=== PATIENT | female | born 1980 | race Hispanic/Latino ===

== ENCOUNTER 2018-02-20 16:24 | Emergency (ER) | payer OTHER ==
[2018-02-20 17:11] LABS: Absolute Lymphocytes (CBC) 2.4 K/uL (0.7-4.9); Absolute Monocytes 0.3 K/uL (0.1-1.3); Absolute Neutrophil 2.7 K/uL (1.8-8.0); Basophils % 0.8 % (0-1.3); Eosinophils % 0.7 % (0-4.4); Hematocrit 40.4 % (36.0-45.0); Lymphocytes % 44.5 % (15.3-44.8); MCH 31.4 pg (27.0-35.0); MCV 93.2 fL (80-100); MPV 8.2 fL (7.6-11.3); Monocytes % 5.4 % (3.3-12.3); RBC Red Blood Cell Count 4.33 M/uL (3.86-4.86)
[2018-02-20] MEDS ORDERED: NA CHLORIDE 0.9% 1,000 ML ONE (17:12)
[2018-02-20 17:27] LABS: ALT/SGPT 23 U/L (12-78); AST/SGOT 22 U/L (15-37); Albumin 3.5 g/dL (3.4-5.0); Alkaline Phosphatase 71 U/L (45-117); BUN Blood Urea Nitrogen 13 mg/dL (7-18); Bicarbonate 25 mmol/L (21-32); Bilirubin Direct < 0.1 mg/dL (0-0.2); Bilirubin Total 0.2 mg/dL (0.2-1.0); Glucose Level 92 mg/dL (74-106); Lipase 122 U/L (73-393); Potassium 3.7 mmol/L (3.5-5.1); Protein, Total 7.9 g/dL (6.4-8.2); Sodium Level 140 mmol/L (136-145)
[2018-02-20] MEDS ORDERED: ONDANSETRON 4 MG/2 ML VIAL ONE (17:33)
[2018-02-20 18:07] LABS: Urine Blood 3+ (NEG); Urine Glucose NEGATIVE (NEG); Urine Protein 1+ (NEG)
[2018-02-20 18:34] LABS: Urine Bacteria <20 /HPF (<20); Urine Culture Reflex Order NOT NEEDED; Urine RBC >50 /HPF (NONE SEEN)
--- NOTE | 2018-02-20 19:02 | RAD REPORT ---
EXAM DESCRIPTION: CT - Abdomen Pelvis W Contrast - 02/20/2018 6:51 pm CLINICAL HISTORY: Persistent right lower quadrant pain, history of hernia repair COMPARISON: None. TECHNIQUE: Biphasic, helical CT imaging of the abdomen and pelvis was performed following 100 ml non -ionic IV contrast. Oral contrast was given. All CT scans are performed using dose optimization technique as appropriate and may include automated exposure control or mA/KV adjustment according to patient size. FINDINGS: No suspicious findings in the lung bases. The liver, spleen, and pancreas show no suspicious findings. Gallbladder and biliary tree are also wi thout suspicious finding. Gallstones can be occult on CT imaging. Symmetric renal function is seen with no hydronephrosis or suspicious renal mass. No pyelonephritis o r acute renal parenchymal process. No adrenal abnormality. Urinary bladder shows no suspicious findin gs. Uterus and ovaries are unremarkable. No dilated bowel loops or bowel wall thickening. Appendicitis is not clearly defined. There are direc t or indirect findings for appendicitis. No free air, free fluid or inflammatory stranding. No herni a, mass or bulky lymphadenopathy. No suspicious bony findings. IMPRESSION: Contrast enhanced CT abdomen and pelvis showing no significant or suspicious finding.
--- NOTE | 2018-02-20 19:21 | EDPHYS ---
Physician Documentation [facility] Name: Nadiya Koroma Age: 37 yrs Sex: Female : 1980 Arrival Date: 02/20/2018 Time: 16:27 Bed 25 Private MD: ED Physician German Roe HPI: 02/20 17:05 This 37 yrs old Female presents to ER via Ambulatory with complaints of pm1 Abdominal Pain. 17:05 The patient presents with abdominal pain. Onset: The symptoms/episode began/occurred 4 pm1 day(s) ago. The symptoms do not radiate. Associated signs and symptoms: Pertinent negatives: nausea, vomiting, and diarrhea, chest pain, shortness of breath. The symptoms are described as sharp. Modifying factors: The symptoms are alleviated by nothing, the symptoms are aggravated by walking, Movement of right leg. Severity of pain: in the emergency department the pain is unchanged. The patient has been recently seen by a physician: Dr. Weaver evaluated the patient today for right lower quadrant groin pain. Patient had a transvaginal U/S performed prior to ER arrival. 17:05 Patient was sent her by Dr. Kruse for r/o appendicitis and kidney stones. 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 - Social history:: Smoking status: Patient/guardian denies using tobacco. - Ebola Screening: : No symptoms or risks identified at this time. ROS: 17:05 Constitutional: Negative for fever, chills, and weight loss, Eyes: Negative for injury, pm1 pain, redness, and discharge, ENT: Negative for injury, pain, and discharge, Neck: Negative for injury, pain, and swelling, Cardiovascular: Negative for chest pain, palpitations, and edema, Respiratory: Negative for shortness of breath, cough, wheezing, and pleuritic chest pain. 17:05 Back: Negative for injury and pain, : Negative for injury, bleeding, discharge, and swelling, MS/Extremity: Negative for injury and deformity, Skin: Negative for injury, rash, and discoloration, Neuro: Negative for headache, weakness, numbness, tingling, and seizure. 17:05 Abdomen/GI: Positive for abdominal pain, of the right lower quadrant, Right groin, Negative for nausea, vomiting, and diarrhea. Exam: 17:05 Constitutional: This is a well developed, well nourished patient who is awake, alert, pm1 and in no acute distress. Head/Face: Normocephalic, atraumatic. Eyes: Pupils equal round and reactive to light, extra-ocular motions intact. Lids and lashes normal. Conjunctiva and sclera are non-icteric and not injected. Cornea within normal limits. Periorbital areas with no swelling, redness, or edema. ENT: Nares patent. No nasal discharge, no septal abnormalities noted. Tympanic membranes are normal and external auditory canals are clear. Oropharynx with no redness, swelling, or masses, exudates, or evidence of obstruction, uvula midline. Mucous membranes moist. Neck: Trachea midline, no thyromegaly or masses palpated, and no cervical lymphadenopathy. Supple, full range of motion without nuchal rigidity, or vertebral point tenderness. No Meningismus. Chest/axilla: Normal chest wall appearance and motion. Nontender with no deformity. No lesions are appreciated. Cardiovascular: Regular rate and rhythm with a normal S1 and S2. No gallops, murmurs, or rubs. Normal PMI, no JVD. No pulse deficits. Respiratory: Lungs have equal breath sounds bilaterally, clear to auscultation and percussion. No rales, rhonchi or wheezes noted. No increased work of breathing, no retractions or nasal flaring. 17:05 Back: No spinal tenderness. No costovertebral tenderness. Full range of motion. Skin: Warm, dry with normal turgor. Normal color with no rashes, no lesions, and no evidence of cellulitis. 17:05 Abdomen/GI: Inspection: abdomen appears normal, Bowel sounds: normal, Palpation: soft, mild abdominal tenderness, in the right groin area, mass, is not appreciated, rebound tenderness, is not appreciated. 17:05 Musculoskeletal/extremity: Extremities: grossly normal except: ROM: no acute changes, intact in all extremities. Vital Signs: 16:37 BP 120 / 81; Pulse 79; Resp 18 S; Temp 98.0(TE); Pulse Ox 98% on R/A; Weight 49.9 kg aa5 (R); Height 4 ft. 10 in. (147.32 cm) (R); Pain 8/10; 17:51 BP 122 / 83; Pulse 73; Resp 18; Pulse Ox 100% on R/A; Pain 2/10; mg2 19:30 BP 122 / 80; Pulse 85; Resp 18; Pulse Ox 100% on R/A; Pain 1/10; mg2 16:37 Body Mass Index 22.99 (49.90 kg, 147.32 cm) aa5 MDM: 16:46 Patient medically screened. pm1 16:46 Data reviewed: vital signs. Data interpreted: Pulse oximetry: on room air is 98 %. pm1 Interpretation: normal. ED course: Patient refused pain medications offered in the ER. 17:05 ED course: Transvaginal ultrasound performed today reviewed: Endovaginal pelvic pm1 ultrasound shows no significant or suspicious findings. 19:19 Physician consultation: John Avalos MD was called at 19:20, was contacted at 19:20, pm1 regarding CT read - No appendicitis present. 19:20 Counseling: I had a detailed discussion with the patient and/or guardian regarding: the pm1 historical points, exam findings, and any diagnostic results supporting the discharge/admit diagnosis, lab results, radiology results, the need for outpatient follow up, to return to the emergency department if symptoms worsen or persist or if there are any questions or concerns that arise at home. 02/20 16:36 Order name: Basic Metabolic Panel [facility] 02/20 16:36 Order name: CBC with Diff; Complete Time: 17:34 snw 02/20 16:36 Order name: Hepatic Function; Complete Time: 17:34 w 02/20 16:36 Order name: Lipase; Complete Time: 17:34 snw 02/20 16:36 Order name: Urine Microscopic Only; Complete Time: 18:49 snw 02/20 16:37 Order name: Basic Metabolic Panel; Complete Time: 17:34 EDMS 02/20 16:36 Order name: Urine Test (obtain specimen); Complete Time: 17:16 snw 02/20 16:36 Order name: IV Saline Lock; Complete Time: 16:57 snw 02/20 16:36 Order name: Labs collected and sent; Complete Time: 16:57 [facility] 02/20 16:36 Order name: CT Abd/Pelvis - W/Contrast snw 02/20 17:16 Order name: Urine Dipstick--Ancillary (enter results); Complete Time: 18:19 eb 02/20 17:16 Order name: Urine --Ancillary (enter results); Complete Time: 18:19 eb 02/20 16:36 Order name: Urine Dipstick-Ancillary (obtain specimen); Complete Time: 17:16 snw Administered Medications: 17:11 Drug: NS 0.9% 1000 ml Route: IV; Rate: 1000 ml; Site: left antecubital; mg2 19:03 Follow up: Response: No adverse reaction; IV Status: Completed infusion mg2 17:31 Drug: Zofran 4 mg Route: IVP; Site: left antecubital; mg2 19:03 Follow up: Response: No adverse reaction; Nausea is decreased mg2 Disposition: 02/20/18 19:21 Discharged to Home. Impression: Unspecified abdominal pain. - Condition is Stable. - Discharge Instructions: Abdominal Pain, Adult, Muscle Strain. - Prescriptions for Naprosyn 500 mg Oral Tablet - take 1 tablet by ORAL route 2 times per day take with food; 30 tablet. Cyclobenzaprine 10 mg Oral Tablet - take 1 tablet by ORAL route every 8 hours As needed; 30 tablet. - Medication Reconciliation Form, Thank You Letter form. - Follow up: Emergency Department; When: As needed; Reason: Worsening of condition. Follow up: Private Physician; When: 2 - 3 days; Reason: Recheck today's complaints, Continuance of care, Re-evaluation by your physician. - Problem is new. - Symptoms have improved. Addendum: 02/27/2018 15:10 Co-signature as Attending Physician, German Roe MD I agree with the assessment and c field plan of care. Signatures: Dispatcher [employer] German Goodman MD MD cha Therrien, Shelly, NURSING PROFESSOR-C NURSING PROFESSOR-Csnw Dominique Fischer, SHANAE RN bb Lucero Richards RN RN aa5 Nolan Niño, IVANIA COP WINDER pm1 Arcadio Whitlock RN RN mg2 Corrections: (The following items were deleted from the chart) 02/20 19:41 19:21 02/20/2018 19:21 Discharged to Home. Impression: Unspecified abdominal pain. bb Condition is Stable. Forms are Medication Reconciliation Form, Thank You Letter, Antibiotic Education, Prescription Opioid Use. Follow up: Emergency Department; When: As needed; Reason: Worsening of condition. Follow up: Private Physician; When: 2 - 3 days; Reason: Recheck today's complaints, Continuance of care, Re-evaluation by your physician. Problem is new. Symptoms have improved. pm1
--- NOTE | 2018-02-20 19:21 | ER ---
Nurse's Notes [facility] Name: Nadiya Koroma Age: 37 yrs Sex: Female : 1980 Arrival Date: 02/20/2018 Time: 16:27 Bed 25 Private MD: Diagnosis: Unspecified abdominal pain Presentation: 02/20 16:36 Presenting complaint: Patient states: RLQ pain that began Tuesday. Pt denies N/V/D. 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 Transition of care: patient was not received from another setting of care. Onset of symptoms was February 2018. Risk Assessment: Do you want to hurt yourself or someone else? Patient reports no desire to harm self or others. Initial Sepsis Screen: Does the patient meet any 2 criteria? No. Patient's initial sepsis screen is negative. Does the patient have a suspected source of infection? No. Patient's initial sepsis screen is negative. Care prior to arrival: None. 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 - Social history:: Smoking status: Patient/guardian denies using tobacco. - Ebola Screening: : No symptoms or risks identified at this time. Screenin:01 Abuse screen: Denies threats or abuse. Denies injuries from another. Nutritional mg2 screening: No deficits noted. Tuberculosis screening: No symptoms or risk factors identified. Fall Risk IV access (20 points). Assessment: 17:03 General: Appears in no apparent distress. comfortable, Behavior is calm, cooperative. mg2 Pain: Complains of pain in right lower abdomen Pain does not radiate. Pain currently is 5 out of 10 on a pain scale. Quality of pain is described as aching, Pain began gradually, 2-3 days ago. Neuro: Level of Consciousness is awake, alert, obeys commands, Oriented to person, place, time. Cardiovascular: Capillary refill < 3 seconds Patient's skin is warm and dry. Respiratory: Airway is patent Respiratory effort is even, unlabored, Respiratory pattern is regular, symmetrical. GI: Abdomen is flat, Reports lower abdominal pain. : Reports having uti before. EENT: No signs and/or symptoms were reported regarding the EENT system. Derm: Skin is intact, Skin is pink, warm \T\ dry. normal. Musculoskeletal: No signs and/or symptoms reported regarding the musculoskeletal system. 17:51 Reassessment: Patient appears in no apparent distress at this time. Patient and/or mg2 family updated on plan of care and expected duration. Pain level reassessed. Patient is alert, oriented x 3, equal unlabored respirations, skin warm/dry/pink. Vital Signs: 16:37 BP 120 / 81; Pulse 79; Resp 18 S; Temp 98.0(TE); Pulse Ox 98% on R/A; Weight 49.9 kg aa5 (R); Height 4 ft. 10 in. (147.32 cm) (R); Pain 8/10; 17:51 BP 122 / 83; Pulse 73; Resp 18; Pulse Ox 100% on R/A; Pain 2/10; mg2 19:30 BP 122 / 80; Pulse 85; Resp 18; Pulse Ox 100% on R/A; Pain 1/10; mg2 16:37 Body Mass Index 22.99 (49.90 kg, 147.32 cm) aa5 ED Course: 16:27 Patient arrived in ED. rg4 16:37 Triage completed. aa5 16:37 Arm band placed on. aa5 16:40 Nolan Niño NP is PHCP. pm1 16:40 German Roe MD is Attending Physician. pm1 16:44 Arcadio Whitlock RN is Primary Nurse. mg2 17:03 Inserted saline lock: 20 gauge in left antecubital area, using aseptic technique. Blood mg2 collected. 17:05 Patient has correct armband on for positive identification. Call light in reach. Side mg2 rails up X 1. 18:[address] nj 18:52 CT Abd/Pelvis - W/Contrast In Process Unspecified. EDMS 19:30 No provider procedures requiring assistance completed. IV discontinued, intact, mg2 bleeding controlled, No redness/swelling at site. Pressure dressing applied. Administered Medications: 17:11 Drug: NS 0.9% 1000 ml Route: IV; Rate: 1000 ml; Site: left antecubital; mg2 19:03 Follow up: Response: No adverse reaction; IV Status: Completed infusion mg2 17:31 Drug: Zofran 4 mg Route: IVP; Site: left antecubital; mg2 19:03 Follow up: Response: No adverse reaction; Nausea is decreased mg2 Outcome: 19:21 Discharge ordered by pm1 19:41 Patient left the ED. bb Signatures: Dispatcher [employer] EDMS Dominique Fischer RN RN bb Lucero Richards RN RN aa5 Nolan Niño NP ICT ANALYST pm1 Hawa Chacon 4 Sekou Banda Michele, RN RN mg2 Corrections: (The following items were deleted from the chart) 17:52 17:51 Pulse 73bpm; Resp 18bpm; Pulse Ox 100% RA; Pain 2/10; mg2 mg2
== END 2018-02-20 19:41 | disposition home or self-care (01) ==
LOC: ER 16:24
DX: R10.31 Right lower quadrant pain (principal)
CPT/HCPCS: 36415; 74177; 76830; 80048; 80076; 81003; 81015; 81025; 83690; 85025; 96361; 96374; 99284; J2405; J7030; Q9967